=== PATIENT | male | born 1950 | race Caucasian/White ===

== ENCOUNTER → 2019-04-14 | Outpatient (CLI) | payer MEDICARE ==
[~2019-04-14] MED LIST: IOPAMIDOL 300 MG/ML 15ML VIAL IT ONE; LIDOCAINE HCL 1% LOCAL INJ 20 ML VIAL ONE
[2019-04-14 13:08] LABS: HEMOGLOBIN 13.9 g/dL (14.0-18.0)
[2019-04-14 13:20] LABS: INR 0.94; PROTHROMBIN TIME 13.1 seconds (11.9-14.5)
[2019-04-14 13:21] LABS: PARTIAL THROMBOPLASTIN TIME 37.8 seconds (23.8-35.5)
--- NOTE | 2019-04-14 15:34 | Diagnostic Imaging Report ---
PROCEDURE: Myelogram Procedural Personnel Attending physician(s): Astrid Shepard MD Fellow physician(s): None Resident physician(s): None Advanced practice provider(s): None Pre-procedure diagnosis: Cervicalgia Post-procedure diagnosis: Same Indication: Neck pain, cervical neuropathy. Additional clinical history: None Complications: No immediate complications. IMPRESSION: Fluoroscopically guided myelogram at L4-5. Patient to CT for cervical myelogram. PROCEDURE SUMMARY: - Fluoroscopically guided myelogram at L4-5 PROCEDURE DETAILS: Pre-procedure Consent: Informed consent for the procedure including risks, benefits and alternatives was obtained and time-out was performed prior to the procedure. Preparation: The site was prepared and draped using maximal sterile barrier technique including cutaneous antisepsis. Anesthesia/sedation Level of anesthesia/sedation: Local 1% lidocaine Myelogram Refrigerator Mover images were obtained. Under image guidance and via a translaminar approach, a needle was advanced to the thecal space and 10cc Isovue 370 contrast material was injected. Radiation Dose Fluoroscopy time (minutes): 2.5 Reference air kerma (mGy): 58.3 Additional Details Additional description of procedure: None Equipment details: None Specimens removed: None Estimated blood loss (mL): Less than 10 Attestation Signer name: Astrid Shepard MD I attest that I was present for the entire procedure. I reviewed the stored images and agree with the report as written. Signed by: Astrid Shepard MD on 04/14/2019 3:32 PM
--- NOTE | 2019-04-15 07:57 | Diagnostic Imaging Report ---
EXAMINATION: CT Myelogram of the cervical spine HISTORY:Numbness and tingling. COMPARISON:Cervical myelogram, same date. TECHNIQUE: Multidetector helical axial images were obtained from the foramen magnum to T1 following myelography . The images were reconstructed using bone and soft tissue algorithms and were viewed in axial, sagittal and coronal planes. For details of the injection procedure, see the report of the myelogram. Dose modulation, iterative reconstruction, and/or weight based adjustment of the mA/kV was utilized to reduce the radiation dose to as low as reasonably achievable. Intrathecal contrast:Please refer to fluoroscopic myelogram report for detail. FINDINGS: Curvature:Straightening of normal lordosis. Vertebrae:No evidence of neoplasm, infection, or fracture. Soft tissues: No abnormalities. Spinal canal caliber: Developmentally normal. Degenerative changes: C1-C2: Severe degenerative narrowing. C2-C3: Mild bilateral uncovertebral arthropathy. No canal or foraminal stenosis. C3-C4: Mild bilateral uncovertebral arthropathy results in mild right neural foraminal narrowing. No left foraminal or canal stenosis. C4-C5: Asymmetric to the right disc osteophyte complex and bilateral uncovertebral arthropathy. No foraminal or canal stenosis. C5-C6: Right central disc protrusion superimposed on asymmetric to the right disc osteophyte complex and bilateral uncovertebral arthropathy result in severe right and moderate left neural foraminal narrowing and mild canal stenosis. C6-C7: Diffuse disc osteophyte complex and bilateral uncovertebral arthropathy result in mild right neural foraminal narrowing. No left foraminal or canal stenosis. C7-T1: No abnormalities. IMPRESSION: Degenerative changes from C2-C3 through C6-C7 with mild canal stenosis and severe right and moderate left foraminal narrowing at C5-C6. Signed by: Dr. Stacie Vega M.D. on 04/15/2019 7:54 AM
== END ==
LOC: DX 12:39
PROVIDERS: ATTEND Family Medicine
DX: R20.0 Anesthesia of skin (principal); M54.2 Cervicalgia
CPT/HCPCS: 36415; 62302; 72126; 85014; 85049; 85610; 85730; J2001; Q9967